=== PATIENT | female | born 1985 | race Caucasian/White ===

== ENCOUNTER 2019-09-02 00:51 | Emergency (ER) | payer MEDICAID ==
[~2019-09-02] VITALS: Ht 147.3 cm; Wt 62.1 kg
[2019-09-02 00:53] VITALS: BP 128/82
--- NOTE | 2019-09-02 00:53 | NUR ---
PT AMBULATED TO BED #3
--- NOTE | 2019-09-02 01:18 | NUR ---
34 Y/O FEMALE C/O RT FLANK PAIN X 2100 YESTERDAY. RATES PAIN 10/10 AND DESCRIBES IT BURNING. PT STATES SHE HAS CLEAR FOUL SMELLING DRAINGE COMING OUT OF HER VAGINA AND BLOOD IN URINE. PT ALSO STATES HE HAS DYSURIA. DENIES ANY FEVER,N,V,D. VSS. A & O X4. STEADY GAIT. NKA. NO PMH.
[2019-09-02] MEDS ORDERED: MORPHINE SULFATE 4 MG/ML SYR IM ONE (02:45)
[2019-09-02 03:03] VITALS: BP 128/82
--- NOTE | 2019-09-02 03:03 | NUR ---
Patient discharged with v/s stable. Written and verbal after care instructions given and explained. Patient alert, oriented and verbalized understanding of instructions. Ambulatory with steady gait. All questions addressed prior to discharge. ID band removed. Patient advised to follow up with PMD. Rx of MILK OF MAGNESIA given. Patient educated on indication of medication including possible reaction and side effects. Opportunity to ask questions provided and answered.
== END 2019-09-02 03:03 | disposition home or self-care (01) ==
LOC: MED 00:51
DX: K59.00 Constipation, unspecified (principal); R30.0 Dysuria
CPT/HCPCS: 74018; 96372; 99283; J2270

== ENCOUNTER 2020-09-03 15:28 | Emergency (ER) | payer MEDICAID ==
[~2020-09-03] VITALS: Ht 160 cm; Wt 60.3 kg
[2020-09-03 15:29] VITALS: BP 125/82
[2020-09-03 15:48] VITALS: BP 122/78
== END 2020-09-03 15:48 | disposition home or self-care (01) ==
LOC: MED 15:28
DX: S01.112D Laceration without foreign body of left eyelid and periocular area, subsequent encounter (principal); Z48.00 Encounter for change or removal of nonsurgical wound dressing; X58.XXXD Exposure to other specified factors, subsequent encounter
CPT/HCPCS: 99281

== ENCOUNTER 2021-04-11 17:03 | Emergency (ER) | payer MEDICAID ==
[~2021-04-11] VITALS: Ht 149.9 cm; Wt 62.6 kg
[2021-04-11 17:11] VITALS: BP 137/78
--- NOTE | 2021-04-11 17:16 | NUR ---
PT AMBULATED TO ER BED 4.
--- NOTE | 2021-04-11 17:31 | NUR ---
DR. ARELLANO AT PT BEDSIDE FOR FURTHER EVALUATION.
--- NOTE | 2021-04-11 17:33 | NUR ---
36 Y/O FEMALE C/O CHEST PAIN 05/20 DESCRIBES PRESSURE AND SQUEEZING RADIATES TO LEFT SIDE OF CHEST AND MID BACK X 3DAYS. PT DENIES TRAUMA/INJURY TO AREA. DENIES N/V, DENIES FEVER/CHILLS. DENIES PMH NKA
--- NOTE | 2021-04-11 17:45 | NUR ---
Note arminda in EDM - 04/11/21 at 1855 by [facility] 1ST NITRO GIVEN BP 117/79 AND HR 77. PAIN RATED 8/10 TO LEFT SIDE OF CHEST DESCRIBES PRESSURE AND SQUEEZING RADIATES TO UPPER MID BACK. IS AWARE.
[2021-04-11 18:13] LABS: BASOPHILS # (AUTO) 0.1 K/uL (0.00-0.22); BASOPHILS % (AUTO) 0.9 % (0.0-2.0); EOSINOPHILS # (AUTO) 0.2 K/uL (0-0.4); EOSINOPHILS % (AUTO) 3.3 % (0.0-4.0); HEMATOCRIT 37.7 % (36-48); HEMOGLOBIN 12.4 g/dL (12.0-16.0); LYMPHOCYTES # (AUTO) 1.8 K/uL (2.5-16.5); LYMPHOCYTES % (AUTO) 29.7 % (20.5-51.1); MEAN CORPUSCULAR HEMOGLOBIN 26 pg (27-31); MEAN CORPUSCULAR HGB CONC 33 g/dL (33-37); MONOCYTES # (AUTO) 0.5 K/uL (0.8-1.0); MONOCYTES % (AUTO) 8.5 % (1.7-9.3); NEUTROPHILS # (AUTO) 3.5 K/uL (1.8-7.7); NEUTROPHILS % (AUTO) 57.6 % (42.2-75.2); PLATELET COUNT (AUTO) 241 K/uL (140-450); RED BLOOD CELL COUNT(AUTO) 4.84 MIL/uL (4.20-5.40); RED CELL DISTRIBUTION WIDTH 15.9 % (11.6-13.7)
--- NOTE | 2021-04-11 18:30 | NUR ---
PT STATES PAIN RATED 8/10 TO LEFT SIDE OF CHEST DESCRIBES PRESSURE AND SQUEEZING RADIATES TO UPPER MID BACK. MD MADE AWARE.
[2021-04-11 18:33] LABS: ALBUMIN 3.6 g/dL (3.4-5.0); ANION GAP 9.8 (8-16); CARBON DIOXIDE 27.7 mmol/L (21-32); CREATININE 0.7 mg/dL (0.6-1.3); POTASSIUM 3.5 mmol/L (3.5-5.1); TOTAL BILIRUBIN 0.4 mg/dL (0.0-1.0)
[2021-04-11] MEDS ORDERED: ACETAMINOPHEN EXTRA STRENGTH 500 MG TAB PO ONE (18:35)
[2021-04-11] MEDS ORDERED: NITROGLYCERIN 0.4 MG TAB SL ONE (18:35)
--- NOTE | 2021-04-11 18:45 | NUR ---
1ST NITRO GIVEN BP 117/79 AND HR 77. PAIN RATED 8/10 TO LEFT SIDE OF CHEST DESCRIBES PRESSURE AND SQUEEZING RADIATES TO UPPER MID BACK. MD IS AWARE.
--- NOTE | 2021-04-11 18:50 | NUR ---
2ND NITRO GIVEN BP 107/72 AND HR 73. PAIN RATED 7/10 TO LEFT SIDE OF CHEST DESCRIBES PRESSURE AND SQUEEZING RADIATES TO UPPER MID BACK. MD IS AWARE.
--- NOTE | 2021-04-11 18:55 | NUR ---
3RD NITRO GIVEN BP 111/72 AND HR 79. PAIN RATED 5/10 TO LEFT SIDE OF CHEST DESCRIBES PRESSURE AND SQUEEZING RADIATES TO UPPER MID BACK. MD IS AWARE.
--- NOTE | 2021-04-11 19:05 | NUR ---
PT STATES CHEST PAIN IS 3/10 S/P NITRO AND TYNENOL, NO OTHER CONCERNS AT THIS TIME. MADE AWARE.
--- NOTE | 2021-04-11 19:14 | NUR ---
GAVE REPORT TO MEME JOHNSON. TRANSFER OF CARE AT THIS TIME.
--- NOTE | 2021-04-11 19:15 | NUR ---
REPORT RECIEVED FROM MEME BURK FOR CONTINUITY OF CARE.
--- NOTE | 2021-04-11 19:25 | NUR ---
PT LYING IN BED COMFORTABLY, C/O MILD DISCOMFORT TO LEFT CHEST AT THIS TIME. ERMD AWARE. 3RD DOSE OF NITRO ADMINISTERED PRIOR TO SHIFT CHANGE WITH SOME RELIEF. AWAITING REPEAT TROPONIN LEVEL.
--- NOTE | 2021-04-11 20:44 | NUR ---
Patient appears to be resting comfortably in bed. Vital Signs within normal limits. Respirations even and unlabored. ALL NEEDS MET AT THIS TIME.
[2021-04-11 21:12] VITALS: BP 107/67
--- NOTE | 2021-04-11 21:12 | NUR ---
Patient discharged with v/s stable. Written and verbal after care instructions given and explained. Patient verbalized understanding. Ambulatory with steady gait. All questions addressed prior to discharge. Advised to follow up with PMD.
== END 2021-04-11 21:12 | disposition home or self-care (01) ==
LOC: MED 17:03
DX: R07.89 Other chest pain (principal); R73.9 Hyperglycemia, unspecified; Z90.49 Acquired absence of other specified parts of digestive tract
CPT/HCPCS: 36415; 71045; 80053; 83880; 84484; 85025; 93005; 99285; Q0092

== ENCOUNTER 2022-07-05 19:41 | Emergency (ER) | payer MEDICAID ==
[~2022-07-05] VITALS: Ht 152.4 cm; Wt 81.6 kg
[2022-07-05 20:31] VITALS: BP 161/95
--- NOTE | 2022-07-05 20:34 | NUR ---
TO LOBBY FOLLOWING TRIAGE, UA OBTAINED
--- NOTE | 2022-07-05 20:43 | NUR ---
PT AMBULATED TO BED 5
--- NOTE | 2022-07-05 21:00 | NUR ---
37/F BIB SELF C/C 04/20 RIGHT FLANK X2DAYS. + ABDOMINAL PAIN. +BUIRNING UPON URINATION DENIES N/V/D/C. 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 PLACED IN BED AND MONITOR. BED LOW AND LOCKED. SIDE RAIL UP FOR SAFETY. ALL NEEDS MET. DENIES PMHX, RX, ALLERGIES.
[2022-07-05 21:10] LABS: APPEARANCE,URINE CLEAR (CLEAR); BILIRUBIN,URINE NEGATIVE (NEGATIVE); BLOOD, URINE NEGATIVE (NEGATIVE); LEUKOCYTE ESTERASE ,URINE NEGATIVE (NEGATIVE); NITRITE, URINE NEGATIVE (NEGATIVE); UGLUCOSE TRACE (NEGATIVE)
[2022-07-05 21:11] LABS: COLOR,URINE STRAW (YELLOW)
[2022-07-05 21:11] LABS: BASOPHILS # (AUTO) 0.1 K/uL (0.00-0.22); BASOPHILS % (AUTO) 1.3 % (0.0-2.0); EOSINOPHILS # (AUTO) 0.3 K/uL (0-0.4); EOSINOPHILS % (AUTO) 4.4 % (0.0-4.0); HEMATOCRIT 36.7 % (36-48); HEMOGLOBIN 11.9 g/dL (12.0-16.0); LYMPHOCYTES # (AUTO) 2.1 K/uL (2.5-16.5); LYMPHOCYTES % (AUTO) 28.2 % (20.5-51.1); MEAN CORPUSCULAR HEMOGLOBIN 25 pg (27-31); MEAN CORPUSCULAR HGB CONC 32 g/dL (33-37); MEAN CORPUSCULAR VOLUME 75.9 fL (80-94); MONOCYTES # (AUTO) 0.8 K/uL (0.8-1.0); MONOCYTES % (AUTO) 10.5 % (1.7-9.3); NEUTROPHILS # (AUTO) 4.1 K/uL (1.8-7.7); NEUTROPHILS % (AUTO) 55.6 % (42.2-75.2); PLATELET COUNT (AUTO) 249 K/uL (140-450); RED BLOOD CELL COUNT(AUTO) 4.83 MIL/uL (4.20-5.40); RED CELL DISTRIBUTION WIDTH 16.3 % (11.6-13.7); WHITE BLOOD COUNT (AUTO) 7.4 K/uL (4.8-10.8)
[2022-07-05 21:37] LABS: ALBUMIN 3.4 g/dL (3.4-5.0); ANION GAP 8.7 (8-16); CARBON DIOXIDE 29.6 mmol/L (21-32); CREATININE 0.7 mg/dL (0.6-1.3); POTASSIUM 4.3 mmol/L (3.5-5.1); TOTAL BILIRUBIN 0.2 mg/dL (0.0-1.0)
--- NOTE | 2022-07-05 22:39 | NUR ---
VI PAZ ASSESSING PATIENT
--- NOTE | 2022-07-05 22:40 | NUR ---
PATIENT AMBULATED TO RR
--- NOTE | 2022-07-05 22:45 | NUR ---
[facility] COLLECTED AND WALKED TO LAB
[2022-07-05] MEDS ORDERED: MAGN400S60 PO (23:47)
--- NOTE | 2022-07-05 23:50 | NUR ---
VI PAZ AT BEDSIDE
--- NOTE | 2022-07-05 23:53 | NUR ---
Patient discharged with v/s stable. Written and verbal after care instructions given and explained. Patient alert, oriented and verbalized understanding of instructions. Ambulatory with steady gait. All questions addressed prior to discharge. ID band removed. Patient advised to follow up with PMD. Rx of MILK OF MG given. Patient educated on indication of medication including possible reaction and side effects. Opportunity to ask questions provided and answered.
[2022-07-05 23:54] VITALS: BP 130/78
== END 2022-07-05 23:53 | disposition home or self-care (01) ==
LOC: MED 19:41
DX: K59.00 Constipation, unspecified (principal); Z90.49 Acquired absence of other specified parts of digestive tract; Z79.899 Other long term (current) drug therapy
CPT/HCPCS: 36415; 74018; 80053; 81003; 81025; 83690; 85025; 87210; 99285; Q0092